=== PATIENT | male | born 1965 | race Caucasian/White ===

== ENCOUNTER 2018-05-10 00:09 | Outpatient (CLI) | payer BC, SELFPAY ==
--- NOTE | 2018-05-10 07:27 | DI.RAD_ITS ---
SYMPTOM/DIAGNOSIS: SHORTNESS OF BREATH, R06.02 CHEST X-RAY: PA and lateral. No priors. The heart is normal in size. The lungs are clear. The mediastinal structures and pleura appear intact. CONCLUSION: Normal chest.
[2018-05-10 09:53] LABS: HCT 42.5 % (40.0-50.0); HGB 13.9 g/dL (13.5-17.5); Mean Corp. HGB Concentration 32.7 g/dL (32.0-36.0); Mean Corpuscular Hemoglobin 27.4 pg (27.0-33.0); Mean Corpuscular Volume 83.8 fL (80-95); Mean Platelet Volume 9.9 fL (8.0-11.0); Platelet Count 349 x1000/uL (130-400); RBC 5.07 m/cumm (4.50-6.00); RBC Distribution Width 14.1 % (11.8-14.1); White Blood Cell Count 6.62 k/cumm (4.4-10.8)
[2018-05-10 10:53] LABS: ALT 46 U/L (12-78); AST 25 U/L (15-37); Alkaline Phosphatase 70 U/L (46-116); Anion Gap 7.7 mmol/L (3-11); BUN 16 mg/dL (7-18); Bilirubin, Total 0.4 mg/dL (0.2-1.0); CO2 29.3 mmol/L (21.0-32.0); CREATININE 0.83 mg/dL (0.70-1.30); Calcium 9.2 mg/dL (8.5-10.1); Chloride 102 mmol/L (98-107); Cholesterol 245 mg/dL (50-200); Glucose 104 mg/dL (70-100); HDL Cholesterol 48 mg/dL (40-60); LDL CHOLESTEROL 174 mg/dL (<100); Potassium 4.8 mmol/L (3.5-5.1); Sodium 139 mmol/L (136-145); Total Protein 7.2 g/dL (6.4-8.2); Triglyceride 91 mg/dL (30-150)
== END 2018-05-10 00:29 ==
PROVIDERS: PCP Nurse Practitioner; Visit Provider Nurse Practitioner
DX: R06.02 Shortness of breath (principal); E66.9 Obesity, unspecified
CPT/HCPCS: 36415; 80053; 80061; 83721; 85027; 71046

== ENCOUNTER 2018-05-17 01:49 | Outpatient (CLI) | payer BC, SELFPAY ==
--- NOTE | 2018-05-17 07:30 | MERGE_ITS ---
*[facility]* *[facility]* [address] [place] [address] Date of study: 05/17/2018 Transthoracic Echocardiography M-mode, complete 2D, complete spectral Doppler, and color Doppler *STUDY CONCLUSIONS* Summary: 1. Left ventricle: The cavity size was normal. The estimated ejection fraction was 65%. Diastolic parameters were normal. There was no evidence of elevated ventricular filling pressure by Doppler parameters. 2. Mitral valve: There was mild regurgitation. 3. Right ventricle: The cavity size was normal. Wall thickness was normal. Systolic function was normal. 4. Atrial septum: No defect or patent foramen ovale was identified. 5. Pulmonary arteries: Pulmonary systolic pressure was in the range of 25mm Hg to 35mm Hg. 6. Inferior vena cava: The vessel was patent and normal in size. The respirophasic diameter changes were in the normal range (greater than or equal to 50%), consistent with normal central venous pressure. *PATIENT PRESENTATION* Height: 177.8cm ((70in) ) S/D Pressure: 122 / 71 Weight: 108kg ((237.5lb) ) BSA: 2.35m^2 Test start time: 07:40 AM. Test stop time: 08:40 AM. PERFORMING [facility] [employer]ATER RT Francisco Trimble)(CT), [facility] ORDERING Marisol South Joyce A *PROCEDURE DATA* Procedure information: The patient was identified by two identifiers. This study was interpreted by [facility]. Pertinent images and digital data are archived for permanent storage and are available for subsequent review. No prior study was available for comparison. Study status: Routine. Transthoracic echocardiography. M-mode, complete 2D, complete spectral Doppler, and color Doppler. A Transthoracic Echocardiogram was performed. Scanning was performed from the parasternal, apical, subcostal, and suprasternal notch acoustic windows. Images were obtained using an [id number] cardiac ultrasound machine. Image quality was good. Study completion: The patient tolerated the procedure well. History: PMH: Shortness of breath. *CARDIAC ANATOMY* Left ventricle: The cavity size was normal. The estimated ejection fraction was 65%. The tissue Doppler parameters were normal. Diastolic parameters were normal. There was no evidence of elevated ventricular filling pressure by Doppler parameters. Aortic valve: Trileaflet. Doppler: There was no stenosis. There was no regurgitation. VTI ratio of LVOT to aortic valve: 0.76. Valve area (VTI): 2.7cm^2. Indexed valve area (VTI): 1.2cm^2/m^2. Peak velocity ratio of LVOT to aortic valve: 0.81. Valve area (Vmax): 2.9cm^2. Indexed valve area (Vmax): 1.2cm^2/m^2. Mean velocity ratio of LVOT to aortic valve: 0.83. Valve area (Vmean): 3cm^2. Indexed valve area (Vmean): 1.3cm^2/m^2. Mean gradient (S): 4.2mm Hg. Peak gradient (S): 7.5mm Hg. Aorta: Aortic root: The aortic root was normal in size. Ascending aorta: The ascending aorta was normal in size. Mitral valve: Doppler: There was no evidence for stenosis. There was mild regurgitation. Valve area by pressure half-time: 3.6cm^2. Indexed valve area by pressure half-time: 1.5cm^2/m^2. Peak gradient (D): 3.3mm Hg. Left atrium: The atrium was normal in size. Atrial septum: No defect or patent foramen ovale was identified. Right ventricle: The cavity size was normal. Wall thickness was normal. Systolic function was normal. Pulmonic valve: Doppler: There was no evidence for stenosis. There was trivial regurgitation. Tricuspid valve: Doppler: There was mild regurgitation. Pulmonary artery: Poorly visualized. Pulmonary systolic pressure was in the range of 25mm Hg to 35mm Hg. Right atrium: The atrium was normal in size. Pericardium: There was no pericardial effusion. Systemic veins: Inferior vena cava: Well visualized. The vessel was patent and normal in size. The respirophasic diameter changes were in the normal range (greater than or equal to 50%), consistent with normal central venous pressure. Baseline ECG: Normal sinus rhythm. Measurements Left ventricle Value Reference LV ID, ED, PLAX 4.5 cm 3.5 - 6.0 LV ID, ES, PLAX 3.1 cm 2.1 - 4.0 LV PW thickness, ED, PLAX 0.9 cm LV end-diastolic volume, 1-p A2C 102 ml LV ejection fraction, 1-p A2C 64 % LV end-diastolic volume, 1-p A4C 83 ml LV ejection fraction, 1-p A4C 62 % LV e', lateral 0.136 m/sec LV E/e', lateral 7 LV e', medial 0.084 m/sec LV E/e', medial 11 LV e', average 0.11 m/sec LV E/e', average 8 Ventricular septum Value Reference IVS thickness, ED, PLAX 1.1 cm LVOT Value Reference LVOT ID, A-P 2.1 cm LVOT area 3.6 cm^2 LVOT peak velocity, S 1.11 m/sec LVOT mean velocity, S 0.82 m/sec LVOT VTI, S 22.1 cm LVOT peak gradient, S 4.9 mm Hg LVOT mean gradient, S 2.9 mm Hg Stroke volume (SV), LVOT DP 79 ml Stroke index (SV/bsa), LVOT DP 34 ml/m^2 Aortic valve Value Reference Aortic valve peak velocity, S 1.4 m/sec Aortic valve mean velocity, S 0.98 m/sec Aortic valve VTI, S 29.0 cm Aortic mean gradient, S 4.2 mm Hg Aortic peak gradient, S 7.5 mm Hg VTI ratio, LVOT/AV 0.76 Aortic valve area, VTI 2.7 cm^2 Velocity ratio, peak, LVOT/AV 0.81 Aortic valve area, peak velocity 2.9 cm^2 Velocity ratio, mean, LVOT/AV 0.83 Aortic valve area, mean velocity 3 cm^2 Aortic valve area/bsa, mean velocity 1.3 cm^2/m^2 Aorta Value Reference Aortic root ID, ED 3.5 cm Ascending aorta ID, A-P, S 2.7 cm Left atrium Value Reference LA ID, A-P, ES 3.7 cm LA ID/bsa, A-P 1.6 cm/m^2 <=2.2 LA area, ES, A4C 18.5 cm^2 8.8 - 23.4 LA area, ES, A2C 20 cm^2 LA volume/bsa, ES, 1-p A4C 26 ml/m^2 LA volume, ES, 2-p 57 ml LA volume/bsa, ES, 2-p 24 ml/m^2 LA/aortic root ratio 1.06 Mitral valve Value Reference Mitral E-wave peak velocity 0.91 m/sec Mitral A-wave peak velocity 0.59 m/sec Mitral deceleration time 211 ms 150 - 230 Mitral pressure half-time 61 ms Mitral peak gradient, D 3.3 mm Hg Mitral E/A ratio, peak 1.55 Mitral valve area, PHT, DP 3.6 cm^2 Pulmonary veins Value Reference Pulmonary vein peak velocity, S 0.6 m/sec Pulmonary vein peak velocity, D 0.34 m/sec Pulmonary vein velocity ratio, peak, 1.78 S/D Pulmonary vein A-wave reversal peak 0.34 m/sec velocity Pulmonary vein A-wave reversal 178 ms duration Tricuspid valve Value Reference Tricuspid regurg peak velocity 2.6 m/sec Tricuspid peak RV-RA gradient 27.5 mm Hg Right atrium Value Reference RA area, ES, A4C 11.2 cm^2 8.3 - 19.5 Legend: (L) and (H) elvin values outside specified reference range. I have personally reviewed the images and have reviewed and edited the reported findings. Electronically signed by Maximo Allen MD 05/17/2018 19:11
== END 2018-05-17 02:09 ==
PROVIDERS: PCP Nurse Practitioner; Visit Provider Nurse Practitioner
DX: R06.02 Shortness of breath (principal); I34.0 Nonrheumatic mitral (valve) insufficiency
CPT/HCPCS: 93306

== ENCOUNTER 2018-05-18 00:23 | Outpatient (CLI) | payer BC, SELFPAY ==
--- NOTE | 2018-05-18 11:30 | ETT_ITS ---
*[facility]* *[facility]* [address] [place] [address] Stress Electrocardiography Jeff protocol Date of study: 05/18/2018 *PATIENT PRESENTATION* Height: 177.8cm (70in) Blood Pressure: Weight: 107.7kg (237lb) BSA: 2.34m^2 Referring physician: Marisol South Ordering physician: Marisol South Impressions: Normal study after maximal exercise. Summary: 1. Stress ECG conclusions: The stress ECG is negative. 2. Stress: The target heart rate was achieved. There is a normal resting blood pressure with an appropriate response to stress. The patient experienced no chest pain during stress. Exercise capacity is average for age. Indication: R06.02. History: REASON FOR VISIT: PT REPORTS PROGRESSIVE SHORTNESS OF BREATH ON EXERTION FOR PAST 6 MONTHS TO 1 YEAR. PT RELATES THIS TO LACK OF EXERCISE AND WEIGHT GAIN. Risk factors: Obesity. Dyslipidemia. Cholesterol: 245mg/dl. HDL: 48mg/dl. LDL: 174mg/dl. Triglycerides: 91mg/dl. ALLERGIES: NO KNOWN DRUG ALLERGIES. MEDICATIONS:IPRATROPIUM BROMIDE 0.03% NASAL SPRAY BID. IBUPREFEN 200-400 MG PRN. ACETAMINOPHEN 325-650 MG PRN. EMERGEN-C 1000 MG PRN. Protocol: Jeff protocol. Baseline ECG: SINUS RHYTHM. HR 78BPM. Stress protocol: + +---+ + !Stage !HR !BP (mmHg) ! + +---+ + !Baseline supine !78 !132/78 (96) ! + +---+ + !Baseline standing !86 !128/76 (93) ! + +---+ + !Stage I; 1.7mph, 10degrees; 3 min !124!162/88 (113)! + +---+ + !Stage II; 2.5mph, 12degrees; 3 min !140!162/82 (109)! + +---+ + !Stage III; 3.4mph, 14degrees; 3 min!164!186/90 (122)! + +---+ + !Immediate post stress !154!170/78 (109)! + +---+ + !Recovery; 3 min !113!178/78 (111)! + +---+ + !Recovery; 6 min !100!164/76 (105)! + +---+ + !Recovery; 9 min !97 !158/80 (106)! + +---+ + * Stress results: Maximal heart rate during stress was 171bpm (101% of maximal predicted heart rate). The maximal predicted heart rate was 169bpm. The target heart rate was achieved. There is a normal resting blood pressure with an appropriate response to stress. The rate-pressure product for the peak heart rate and blood pressure was 49181wh Hg/min. The patient experienced no chest pain during stress. Exercise capacity is average for age. Stress ECG: TREADMILL PORTION OF TEST ENDED IN 9 MINUTES & 10 SECONDS DUE TO SHORTNESS OF BREATH AND FATIGUE. NORMAL HEART RATE BLOOD PRESURE RESPONSE TO EXERCISE. MAX HR = 171. % OF TARGET = 101. APPROXIMATE METS ACHIEVED = 10.49 NO ECTOPY. NO ANGINA. NO SIGNIFICANT ST SEGMENT CHANGES. AVERAGE FUNCTIONAL CAPACITY FOR EXERCISE. The stress ECG is negative. Study data: Dk Allan MD supervised and was readily available during the procedure. This study was interpreted by [facility]. Study status: Routine. Consent: The risks, benefits, and alternatives to the procedure were explained to the patient and informed consent was obtained. Procedure: Initial setup. A baseline ECG was recorded. Surface ECG leads and manual cuff blood pressure measurements were monitored. Heart sounds: Normal. Lung sounds: Normal. Treadmill exercise testing was performed using the Jeff protocol. Study completion: The patient tolerated the procedure well and was discharged from the lab. Discharge: The patient left the laboratory in stable condition. Birthdate: Patient birthdate: 1965. Sex: Gender: male. Study date: Study date: 05/18/2018. Study time: 11:30 AM. Signature Documentation: The Stress ECG portion of this study was interpreted by Dk Allan MD. Electronically signed by Dk Allan 05/18/2018 17:53
== END 2018-05-18 00:43 ==
PROVIDERS: PCP Nurse Practitioner; Visit Provider Nurse Practitioner
DX: R00.2 Palpitations (principal); E78.5 Hyperlipidemia, unspecified; E66.9 Obesity, unspecified
CPT/HCPCS: 93017

== ENCOUNTER 2023-11-28 03:09 | Outpatient (CLI) | payer BC, SELFPAY ==
[2023-11-28 07:43] LABS: HGB 13.8 g/dL (13.5-17.5)
[2023-11-28 08:23] LABS: ALT 50 U/L (16-63); AST 22 U/L (15-37); Albumin 3.9 g/dL (3.4-5.0); Alkaline Phosphatase 59 U/L (46-116); Anion Gap 8.5 mmol/L (3-11); BUN 14 mg/dL (7-18); CO2 27.5 mmol/L (21.0-32.0); CREATININE 0.8 mg/dL (0.70-1.30); Chloride 105 mmol/L (98-107); Estimated GFR 103.87 (mL/min/1.73m2); Glucose 205 mg/dL (74-106); Potassium 3.7 mmol/L (3.5-5.1); Sodium 141 mmol/L (136-145); Vitamin D 25 Total 13.3 ng/mL (30-100)
[2023-12-04 15:20] LABS: Apolipoprotein B, Serum 128 mg/dL; Beta VLDL Cholesterol Not Detected mg/dL (<15); Beta VLDL Triglycerides Not Detected mg/dL (<15); Cholesterol, Total, CDC 229 mg/dL; Chylomicron Cholesterol Not Detected; Chylomicron Triglycerides Not Detected; HDL Cholesterol, CDC 37 mg/dL (>=40); LDL Cholesterol 161 mg/dL; LDL Triglycerides 40 mg/dL (<=50); Lp(a) Cholesterol <5 mg/dL (<5); LpX Not detected; Triglycerides, CDC 136 mg/dL; VLDL Cholesterol 31 mg/dL (<30); VLDL Triglycerides 76 mg/dL (<120)
== END 2023-11-28 03:10 | disposition home or self-care (01) ==
LOC: LBO 03:09
PROVIDERS: PCP Student in an Organized Health Care Education/Training Program; Referring Provider Student in an Organized Health Care Education/Training Program; Visit Provider Student in an Organized Health Care Education/Training Program
DX: R63.5 Abnormal weight gain (principal); G47.33 Obstructive sleep apnea (adult) (pediatric); Z00.00 Encounter for general adult medical examination without abnormal findings; E78.5 Hyperlipidemia, unspecified; R73.09 Other abnormal glucose
CPT/HCPCS: 36415; 80053; 80061; 82306; 82172; 82664; 83036; 85018

== ENCOUNTER 2024-02-05 09:57 | Day surgery (SDC) | payer BC, SELFPAY ==
--- NOTE | 2024-02-04 13:57 | W.PM.DSUDISC ---
Date of service: 02/05/24 Time of Service: 12:29 Discharge Plan Disposition Patient Disposition: Home Condition: Good Discharge Details Reason For Visit: screening colonoscopy Attending Provider: Britton Kerr Primary Care Provider: Lianet Harris Home Meds and New Rx's Prescriptions: Continued (DME) pen needle, diabetic [Comfort EZ Pen [place]] 32 gauge x 5/32 needle See Rx Instructions .Route Qty: 100 12RF Rx Instructions: Use daily with insulin injection (DME) FreeStyle Eloisa 3 Sensor Device See Rx Instructions .Route Qty: 1 12RF Rx Instructions: Apply sensor to rear tricep (DME) Dexcom G7 Sensor Device See Rx Instructions .Route Qty: 1 12RF Rx Instructions: Apply to rear tricep as directed multivitamin [Daily Multi-Vitamin] Tablet 1 tab PO DAILY rosuvastatin 5 mg tablet 5 mg PO DAILY MDD 5 mg 90 Days Qty: 90 4RF Patient Comments: has not started yet Rx Instructions: Take one 5 mg tablet by mouth once daily Mounjaro 7.5 mg/0.5 mL pen injector 7.5 mg subcut QWEEK MDD 7.5 28 Days Qty: 2 12RF Rx Instructions: Inject 7.5 mg subcutaneously once weekly as directed insulin glargine [Lantus Solostar U-100 Insulin] 100 unit/mL (3 mL) insulin pen 9 unit subcut QAM Rx Instructions: Starting dose, with adjustment per AM blood glucose levels per CDE/Dr. Guzman or PCP Discontinued polyethylene glycol 3350 17 gram/dose powder 238 g PO ONCE Qty: 238 0RF Rx Instructions: take per colonoscopy instructions bisacodyl [Dulcolax (bisacodyl)] 5 mg tablet,delayed release (DR/EC) 5 mg PO ONCE Qty: 4 0RF Rx Instructions: take per colonoscopy instructions Discharge Instructions Instructions: Diverticulosis Additional Instructions: Jose Luis, it was good seeing you today, and I hope the procedure was comfortable for you. Your prep was great and I could see everything fine. I did see some diverticulosis. Diverticula are weak spots in the muscular part of the colon wall. They typically accumulate as we get older. On occasion, they can get infected or inflamed, and during those episodes we called diverticulitis. This is typically experienced as sharp pain usually on the left lower part of the abdomen. It is sometimes treated with antibiotics. Hopefully years never bother you. Otherwise, the colonoscopy was negative. I saw no signs of any tumors or polyps today. Because of the types of polyps that you had removed previously, I do recommend another 5-year interval for your next colonoscopy. If that 1 is negative, then you could give consideration to them every 10 years. If you have any questions at all, please do not hesitate to ask, otherwise I look forward to seeing you in 5 years. 1. If tolerated, consume a soft, low fiber diet for 1-2 days. 2[address] Do not drive, drink alcohol, operate machinery, make critical decisions, or do activities that require coordination or balance for 24 hours. 3. Because air was put into your colon during the procedure, expelling air from your rectum (passing gas or farting) is normal. 4. You may not have a bowel movement for 1-3 days because of the colonoscopy prep. This is normal. 5. Go directly to the emergency room if you notice any of the following: Develop chills (warm to touch), or if you have a thermometer and your temperature is above 101 Difficulty breathing or difficultly swallowing Persistent vomiting Severe abdominal pain, other than gas cramps Severe chest pain Black, tarry stools Any bleeding ? exceeding one tablespoon 6. Call your physician if the site where your intravenous was started becomes red, swollen, painful, and warm to touch. 7. Your physician has reviewed your pre-procedure medications. Please continue to take those medications as previously ordered. You will be given specific information/education regarding any changes to your medications before leaving. Stand Alone Forms: Anesthesia Discharge Inst., Geeta Torres (DSU) Activity:: Activity as Tolerated Diet:: As Tolerated Discharge Orders Discharge Orders: Discharge Order (Routine); Ordered 02/04/24 Ordered By: Britton Kerr DS: Diagnosis Discharge Diagnosis (1) Encounter for screening colonoscopy: Status: Acute Asessment and Plan: Negative screening colonoscopy; based on history of adenomatous polyps recommend another 5-year interval for the next colonoscopy
--- NOTE | 2024-02-04 13:59 | W.COLOREPORT ---
Date of service: 02/05/24 Time of Service: 12:30 Colonoscopy Report Date of procedure: 02/05/24 Pre-op diagnosis general: screening colonoscopy Post-op diagnosis procedure note: other (Diverticulosis) Procedure: colonoscopy Surgeon: Britton Kerr Anesthesia Type: General:No Airway Estimated blood loss (mL): 0 Pathology: none sent Complications: None Disposition: same day Indications: Jose Luis is a 58 year old man who needs a screening colonoscopy Prep: Miralax/Dulcolax Procedure Start Time: 12:03 Procedure End Time: 12:19 Retraction Time: 9 Findings: Sigmoid diverticulosis Procedure Description: After the induction of anesthesia, and with the patient in left lateral decubitus position, I began by performing an external anorectal exam.? Perineum and skin were normal, as was the anal verge.? There was no evidence of external hemorrhoids.? Next, I performed a digital rectal exam.? I did not appreciate any abnormal findings.? Next, I advanced a colonoscope into the rectal vault.? I performed retroflexion.? This appeared normal.? Using insufflation, I then advanced the colonoscope beyond the rectal folds and into the sigmoid colon before advancing towards the cecum.? There is just a little bit of sigmoid diverticulosis.? The scope was noted to be in the cecum by identification of the ileocecal valve and appendiceal orifice.? I then began withdrawing the colonoscope using repeated irrigation as necessary for full evaluation of the colonic mucosa. ?Once the scope was withdrawn to the level of the rectum, great care was taken to examine portions of the rectal folds.? Finally, the scope was withdrawn and the patient was brought to the same-day surgery recovery unit as the anesthetic wore off. ?The findings and instructions were shared with the patient prior to discharge. Jewell Bowel Prep Jewell Bowel Prep Right Colon: 3 Left Colon: 3 Transverse Colon: 3 Total Score: 9
[2024-02-05 10:21] VITALS: BP 120/86; PULSE 75; RESP 16; TEMP 36.6; O2SAT 97
[2024-02-05] MEDS: Lactated Ringers 1,000 ML 80 ML IV (10:44)
--- NOTE | 2024-02-05 11:39 | ANES.PREOP_ITS ---
General Info Date of Service Date Performed: 02/05/24 Height: 5 ft 10 in Weight: 98.9 kg Body Mass Index (BMI): 31.2 Surgical Procedure: Operation Date: 02/05/24 11:35 Proposed Procedure Side Surgeon larisa Kerr MD Meds Allergies and Home Medications Allergies Allergy/AdvReac Type Severity Reaction Status Date / Time No Known Allergies Allergy Verified 02/05/24 10:27 Home Medication ?Medication ?Instructions ?Recorded blood-glucose sensor (Dexcom G7 #1 ea 12/01/23 Sensor device) blood-glucose sensor (FreeStyle #1 ea 12/01/23 Eloisa 3 Sensor device) pen needle, diabetic 32 gauge x #100 ea 12/01/23 (Comfort EZ Pen Elton) rosuvastatin 5 mg tablet 5 mg PO DAILY 90 days #90 tabs 12/29/23 tirzepatide 7.5 mg/0.5 mL 7.5 mg (0.5 mL) subcut QWEEK 28 01/12/24 subcutaneous pen injector days #2 mL (Mounjaro) multivitamin (Daily Multi-Vitamin 1 tab PO DAILY 01/23/24 tablet) insulin glargine 100 unit/mL (3 9 unit subcut QAM DM, with goal 02/01/24 mL) subcutaneous pen (Lantus A1C < 7.5 Solostar U-100 Insulin) Current Visit Medications: Current Medications Generic Name Dose Route Start Last Admin Trade Name Freq PRN Reason Stop Dose Admin Ringer's Solution 1,000 mls @ 80 mls/hr 02/05/24 06:00 02/05/24 10:44 IV 03/03/24 23:59 80 mls/hr INFUSION VITALIY Administration IV Miscellaneous Supplies 1 each 02/05/24 06:00 Iv Access IV 03/03/24 23:59 DIRECTED VITALIY Ondansetron HCl 4 mg 02/04/24 14:00 Ondansetron 4 Mg/2 Ml Vial IVP 03/05/24 13:59 Q4H PRN PRN Nausea / Vomiting Sodium Chloride 0 ml 02/05/24 06:00 Normal Saline Flush 10 Ml Syr IV 03/03/24 23:59 PRN PRN Sodium Chloride 0 ml 02/05/24 06:00 Normal Saline 10 Ml Vial IJ 03/03/24 23:59 DIRECTED PRN Sterile Water 0 ml 02/05/24 06:00 Water,Injection,Sterile 10 Ml Vial IJ 03/03/24 23:59 DIRECTED PRN PFSH Active Problems Active Problems: Problem Status Onset Code Encounter for screening colonoscopy Acute Z12.11 Staci type 2a hyperlipoproteinemia Acute E78.00 Diabetes mellitus type 2, uncomplicated Acute E11.9 Hx of low back pain Acute Z87.39 Physical deconditioning Acute R53.81 Weight gain Acute R63.5 Obstructive sleep apnea syndrome, severe Acute 06/19/18 G47.33 BPH w urinary obs/LUTS Acute N40.1, N13.8 Tubular adenoma of colon Acute 08/21/17 D12.6 Medical History Medical History SUSI (obstructive sleep apnea) Hx of type 2 diabetes mellitus Adenomatous polyp of colon with dysplacia Surgical History Surgical History H/O right wrist surgery 1973 in [place] Colonoscopy - [facility] (08/21/17) Tobacco Smoking/Tobacco Use Status: Never Passive smoking exposure: No Second hand exposure: No Alcohol Alcohol Intake: never Substance Use Substance use: Never Substance use type: does not use Vital Signs and Lab Results Vital Signs Most Recent Vital Signs in EMR: Most Recent Vital Signs Temp Pulse Resp BP Pulse Ox 36.6 C 75 16 120/86 97 02/05/24 10:21 02/05/24 10:21 02/05/24 10:21 02/05/24 10:21 02/05/24 10:21 Lab Results Blood Type / Crossmatch: No Data to Display Complete Blood Count: No Data to Display Complete Metabolic Panel: No Data to Display Liver Function Panel: No Data to Display Coagulation Panel: No Data to Display Cardiac Panel: No Data to Display Arterial Blood Gas: No Data to Display Venous Blood Gas: No Data to Display Pancreas Panel: No Data to Display Thyroid Panel: No Data to Display Infectious Disease: No Data to Display Blood Cultures: No Data to Display Toxicology Panel: No Data to Display Imaging and Studies Imaging and Studies Study information below may be from another EMR and interpreted by another provider. Please see original notes in EMR for more complete details. Stress Test Summary: STRESS TEST PATIENT NAME: TEMITOPE GRAYSON UNIT #: [id number] ADMITTING PROVIDER: RUSH ALLAN MD PRIMARY CARE PROVIDER: Marisol South NP DATE OF SERVICE: 05/18/18 : 1965 *[facility]* *[facility]* [address] [place] [address] Stress Electrocardiography Jeff protocol Date of study: 05/18/2018 *PATIENT PRESENTATION* Height: 177.8cm (70in) Blood Pressure: Weight: 107.7kg (237lb) BSA: 2.34m^2 Referring physician: Marisol South Ordering physician: Marisol South Impressions: Normal study after maximal exercise. Summary: 1. Stress ECG conclusions: The stress ECG is negative. 2. Stress: The target heart rate was achieved. There is a normal resting blood pressure with an appropriate response to stress. The patient experienced no chest pain during stress. Exercise capacity is average for age. Indication: R06.02. History: REASON FOR VISIT: PT REPORTS PROGRESSIVE SHORTNESS OF BREATH ON EXERTION FOR PAST 6 MONTHS TO 1 YEAR. PT RELATES THIS TO LACK OF EXERCISE AND WEIGHT GAIN. Risk factors: Obesity. Dyslipidemia. Cholesterol: 245mg/dl. HDL: 48mg/dl. LDL: 174mg/dl. Triglycerides: 91mg/dl. ALLERGIES: NO KNOWN DRUG ALLERGIES. MEDICATIONS:IPRATROPIUM BROMIDE 0.03% NASAL SPRAY BID. IBUPREFEN 200-400 MG PRN. ACETAMINOPHEN 325-650 MG PRN. EMERGEN-C 1000 MG PRN. Protocol: Jeff protocol. Baseline ECG: SINUS RHYTHM. HR 78BPM. Stress protocol: + +---+ + !Stage !HR !BP (mmHg) ! + +---+ + !Baseline supine !78 !132/78 (96) ! + +---+ + !Baseline standing !86 !128/76 (93) ! + +---+ + !Stage I; 1.7mph, 10degrees; 3 min !124!162/88 (113)! + +---+ + !Stage II; 2.5mph, 12degrees; 3 min !140!162/82 (109)! + +---+ + !Stage III; 3.4mph, 14degrees; 3 min!164!186/90 (122)! + +---+ + !Immediate post stress !154!170/78 (109)! + +---+ + !Recovery; 3 min !113!178/78 (111)! + +---+ + !Recovery; 6 min !100!164/76 (105)! + +---+ + !Recovery; 9 min !97 !158/80 (106)! + +---+ + * Stress results: Maximal heart rate during stress was 171bpm (101% of maximal predicted heart rate). The maximal predicted heart rate was 169bpm. The target heart rate was achieved. There is a normal resting blood pressure with an appropriate response to stress. The rate-pressure product for the peak heart rate and blood pressure was 46396wr Hg/min. The patient experienced no chest pain during stress. Exercise capacity is average for age. Stress ECG: TREADMILL PORTION OF TEST ENDED IN 9 MINUTES & 10 SECONDS DUE TO SHORTNESS OF BREATH AND FATIGUE. NORMAL HEART RATE BLOOD PRESURE RESPONSE TO EXERCISE. MAX HR = 171. % OF TARGET = 101. APPROXIMATE METS ACHIEVED = 10.49 NO ECTOPY. NO ANGINA. NO SIGNIFICANT ST SEGMENT CHANGES. AVERAGE FUNCTIONAL CAPACITY FOR EXERCISE. The stress ECG is negative. Study data: Rush Allan MD supervised and was readily available during the procedure. This study was interpreted by [facility]. Study status: Routine. Consent: The risks, benefits, and alternatives to the procedure were explained to the patient and informed consent was obtained. Procedure: Initial setup. A baseline ECG was recorded. Surface ECG leads and manual cuff blood pressure measurements were monitored. Heart sounds: Normal. Lung sounds: Normal. Treadmill exercise testing was performed using the Jeff protocol. Study completion: The patient tolerated the procedure well and was discharged from the lab. Discharge: The patient left the laboratory in stable condition. Birthdate: Patient birthdate: 1965. Sex: Gender: male. Study date: Study date: 05/18/2018. Study time: 11:30 AM. Signature Documentation: The Stress ECG portion of this study was interpreted by Rush Allan MD. Electronically signed by Rush Allan 05/18/2018 17:53 Dictated by: RUSH ALLAN MD Dictated:: 05/18/18 1133 05/18/18 1753 Transcribed Date: Transcribed Time: By: DI.MERGE This is privileged, confidential information, intended only for the provider named. Any use or distribution by any person other than this provider is strictly prohibited. If you receive this report in error, please notify us immediately at [phone] and return the original report to us at the address above. Thank you. Echocardiogram Summary: Patient Name: TEMITOPE GRAYSON Unit #: [id number] Loc: DI Ordering Provider: Marisol South NP Status: REG CLI Primary Care Provider: Marisol South NP Date of Exam: 05/17/18 Sex: M : 1965 Age: 53 Exam(s) a US:US echocardiogram *[facility]* *[facility]* [address] [place] [address] Date of study: 05/17/2018 Transthoracic Echocardiography M-mode, complete 2D, complete spectral Doppler, and color Doppler *STUDY CONCLUSIONS* Summary: 1. Left ventricle: The cavity size was normal. The estimated ejection fraction was 65%. Diastolic parameters were normal. There was no evidence of elevated ventricular filling pressure by Doppler parameters. 2. Mitral valve: There was mild regurgitation. 3. Right ventricle: The cavity size was normal. Wall thickness was normal. Systolic function was normal. 4. Atrial septum: No defect or patent foramen ovale was identified. 5. Pulmonary arteries: Pulmonary systolic pressure was in the range of 25mm Hg to 35mm Hg. 6. Inferior vena cava: The vessel was patent and normal in size. The respirophasic diameter changes were in the normal range (greater than or equal to 50%), consistent with normal central venous pressure. *PATIENT PRESENTATION* Height: 177.8cm ((70in) ) S/D Pressure: 122 / 71 Weight: 108kg ((237.5lb) ) BSA: 2.35m^2 Test start time: 07:40 AM. Test stop time: 08:40 AM. PERFORMING [facility] [employer]ATION SUPERVISOR RT Atilio (Adam)(CT), [facility] ORDERING Marisol South REFERRING Marisol South *PROCEDURE DATA* Procedure information: The patient was identified by two identifiers. This study was interpreted by [facility]. Pertinent images and digital data are archived for permanent storage and are available for subsequent review. No prior study was available for comparison. Study status: Routine. Transthoracic echocardiography. M-mode, complete 2D, complete spectral Doppler, and color Doppler. A Transthoracic Echocardiogram was performed. Scanning was performed from the parasternal, apical, subcostal, and suprasternal notch acoustic windows. Images were obtained using an [id number] cardiac ultrasound machine. Image quality was good. Study completion: The patient tolerated the procedure well. History: PMH: Shortness of breath. *CARDIAC ANATOMY* Left ventricle: The cavity size was normal. The estimated ejection fraction was 65%. The tissue Doppler parameters were normal. Diastolic parameters were normal. There was no evidence of elevated ventricular filling pressure by Doppler parameters. Aortic valve: Trileaflet. Doppler: There was no stenosis. There was no regurgitation. VTI ratio of LVOT to aortic valve: 0.76. Valve area (VTI): 2.7cm^2. Indexed valve area (VTI): 1.2cm^2/m^2. Peak velocity ratio of LVOT to aortic valve: 0.81. Valve area (Vmax): 2.9cm^2. Indexed valve area (Vmax): 1.2cm^2/m^2. Mean velocity ratio of LVOT to aortic valve: 0.83. Valve area (Vmean): 3cm^2. Indexed valve area (Vmean): 1.3cm^2/m^2. Mean gradient (S): 4.2mm Hg. Peak gradient (S): 7.5mm Hg. Aorta: Aortic root: The aortic root was normal in size. Ascending aorta: The ascending aorta was normal in size. Mitral valve: Doppler: There was no evidence for stenosis. There was mild regurgitation. Valve area by pressure half-time: 3.6cm^2. Indexed valve area by pressure half-time: 1.5cm^2/m^2. Peak gradient (D): 3.3mm Hg. Left atrium: The atrium was normal in size. Atrial septum: No defect or patent foramen ovale was identified. Right ventricle: The cavity size was normal. Wall thickness was normal. Systolic function was normal. Pulmonic valve: Doppler: There was no evidence for stenosis. There was trivial regurgitation. Tricuspid valve: Doppler: There was mild regurgitation. Pulmonary artery: Poorly visualized. Pulmonary systolic pressure was in the range of 25mm Hg to 35mm Hg. Right atrium: The atrium was normal in size. Pericardium: There was no pericardial effusion. Systemic veins: Inferior vena cava: Well visualized. The vessel was patent and normal in size. The respirophasic diameter changes were in the normal range (greater than or equal to 50%), consistent with normal central venous pressure. Baseline ECG: Normal sinus rhythm. Measurements Left ventricle Value Reference LV ID, ED, PLAX 4.5 cm 3.5 - 6.0 LV ID, ES, PLAX 3.1 cm 2.1 - 4.0 LV PW thickness, ED, PLAX 0.9 cm LV end-diastolic volume, 1-p A2C 102 ml LV ejection fraction, 1-p A2C 64 % LV end-diastolic volume, 1-p A4C 83 ml LV ejection fraction, 1-p A4C 62 % LV e', lateral 0.136 m/sec LV E/e', lateral 7 LV e', medial 0.084 m/sec LV E/e', medial 11 LV e', average 0.11 m/sec LV E/e', average 8 Ventricular septum Value Reference IVS thickness, ED, PLAX 1.1 cm LVOT Value Reference LVOT ID, A-P 2.1 cm LVOT area 3.6 cm^2 LVOT peak velocity, S 1.11 m/sec LVOT mean velocity, S 0.82 m/sec LVOT VTI, S 22.1 cm LVOT peak gradient, S 4.9 mm Hg LVOT mean gradient, S 2.9 mm Hg Stroke volume (SV), LVOT DP 79 ml Stroke index (SV/bsa), LVOT DP 34 ml/m^2 Aortic valve Value Reference Aortic valve peak velocity, S 1.4 m/sec Aortic valve mean velocity, S 0.98 m/sec Aortic valve VTI, S 29.0 cm Aortic mean gradient, S 4.2 mm Hg Aortic peak gradient, S 7.5 mm Hg VTI ratio, LVOT/AV 0.76 Aortic valve area, VTI 2.7 cm^2 Velocity ratio, peak, LVOT/AV 0.81 Aortic valve area, peak velocity 2.9 cm^2 Velocity ratio, mean, LVOT/AV 0.83 Aortic valve area, mean velocity 3 cm^2 Aortic valve area/bsa, mean velocity 1.3 cm^2/m^2 Aorta Value Reference Aortic root ID, ED 3.5 cm Ascending aorta ID, A-P, S 2.7 cm Left atrium Value Reference LA ID, A-P, ES 3.7 cm LA ID/bsa, A-P 1.6 cm/m^2 <=2.2 LA area, ES, A4C 18.5 cm^2 8.8 - Anesthesia Assessment and Plan Anesthesia History Personal History: No History of Anesthesia Complications Family History: No Family History of Anesthesia Complications Exercise Tolerance Exercise Tolerance: Metabolic Equivalents>4 Pertinent Negatives Pertinent Negatives: No Symptoms of GERD, No Major Pulmonary Symptoms or Complaints and No History of CVA/TIA Cardiac & Pulmonary Exam Cardiac Exam: Normal S1/S2 Heart Sounds Pulmonary Exam: Clear Bilateral Breath Sounds Implantable Cardiac Device Does patient have a Pacemaker or an ICD?: No Airway Exam Known Difficult Airway: No Mallampati Class: 2 Mouth Opening: Normal (> 3cm) Thyromental Distance: Greater than 3 cm Neck Range of Motion: Full ROM Neck Circumference: Normal Teeth Condition: Normal Dentition ASA Classification ASA Score: ASA 2 Emergency Case?: No NPO Status NPO Status: NPO Clears >2 hours, Solids >8 hours Anesthesia Plan Resuscitation Status: Full Code Anesthesia Technique: General Anesthesia Airway Planned: Natural Airway Monitors Used: Standard Monitors
[2024-02-05 11:47] VITALS: BMI 31.2
[2024-02-05 12:24] VITALS: BP 120/80; PULSE 75; RESP 16; TEMP 36.6; O2SAT 97
[2024-02-05 12:55] VITALS: BP 128/95; PULSE 68; RESP 16; TEMP 36.3; O2SAT 98
--- NOTE | 2024-02-05 14:05 | W.ANESPOSTOP ---
Postoperative Evaluation Date, Time and Location Date Performed: 02/05/24 Time Performed: 12:27 Patient Location: Day Surgery Unit Vital Signs Most Recent Imported Vital Signs: Most Recent Vital Signs Temp Pulse Resp BP Pulse Ox 36.3 C L 68 16 128/95 H 98 02/05/24 12:55 02/05/24 12:55 02/05/24 12:55 02/05/24 12:55 02/05/24 12:55 Prior VS were reviewed Pain Score Most Recent Pain Score: Most Recent Pain Score Pain Level 0 02/05/24 12:55 Assessment Mental Status: Awake (Alert & Oriented to Patient Baseline) Airway and Respiratory Function: Patent airway with normal (patient baseline) respiratory exam Cardiovascular Function: Hemodynamically Stable Hydration Status: Adequately Hydrated Nausea & Vomiting: No Nausea or Vomiting Pain: Pt. Denies Any Pain Peripheral Nerve Block: Patient did not receive a nerve block
== END 2024-02-05 13:20 | disposition home or self-care (01) ==
LOC: SUR 09:57
PROVIDERS: PCP Student in an Organized Health Care Education/Training Program; Visit Provider Surgery
PROC: 0DJD8ZZ Inspection of Lower Intestinal Tract, Via Natural or Artificial Opening Endoscopic (ICD-10-PCS; CPT 45378; principal; 2024-02-05 11:30)
DX: Z12.11 Encounter for screening for malignant neoplasm of colon (principal); K57.30 Diverticulosis of large intestine without perforation or abscess without bleeding
CPT/HCPCS: 45378; J2704

== ENCOUNTER 2024-03-08 13:38 | Outpatient (CLI) | payer BC, SELFPAY ==
--- NOTE | 2024-03-08 15:31 | DI.RAD_ITS ---
Exam(s) XR THORACIC SPINE COMPLETE EXAM: XR THORACIC SPINE COMPLETE CLINICAL HISTORY: M54.9,R26.0,M54.50,G89.29,Z87.39-evaluate vert spacing; r/o bony path. TECHNIQUE: 2D digital imaging was performed. Three views. COMPARISON: No exams were available for comparison FINDINGS: BONES: There is no fracture or destructive lesion. The vertebral bodies and posterior elements are un remarkable. ALIGNMENT: Within normal limits. DISKS: Small endplate osteophytes in the midthoracic levels. More prominent osteophytes inferiorly a t the thoracolumbar junction.. SOFT TISSUE: Visualized lungs are clear. Heart size is normal. IMPRESSION: Mild degenerative changes. DATA REPOSITORY: RADIATION DOSE DELIVERED:
--- NOTE | 2024-03-08 15:31 | DI.RAD_ITS ---
Exam(s) XR LUMBAR SPINE COMP W FLEX/EX EXAM: XR LUMBAR SPINE COMP W FLEX/EX CLINICAL HISTORY: R26.0,M54.50,G89.29,Z87.39 evaluate vert spacing; r/o bony path. TECHNIQUE: 2D digital imaging was performed. Seven views. Additional flexion and extension lateral views were performed upright. COMPARISON: No exams were available for comparison FINDINGS: BONES: No fracture or destructive lesion. Vertebral body heights are maintained. facet hypertroph y at L4-5 and L5-S1 . DISKS: Small endplate osteophytes. Intervertebral disc spaces are maintained. ALIGNMENT: Lumbar spinal alignment is within normal limits. No significant subluxation with flexion or extension. SOFT TISSUE: Normal. IMPRESSION: Mild degenerative changes. DATA REPOSITORY: RADIATION DOSE DELIVERED:
== END 2024-03-08 13:58 ==
LOC: DI 13:39
PROVIDERS: PCP Student in an Organized Health Care Education/Training Program; Visit Provider Student in an Organized Health Care Education/Training Program
DX: Z87.39 Personal history of other diseases of the musculoskeletal system and connective tissue; M54.9 Dorsalgia, unspecified; S29.012A Strain of muscle and tendon of back wall of thorax, initial encounter; X58.XXXA Exposure to other specified factors, initial encounter
CPT/HCPCS: 72114; 72072

== ENCOUNTER 2024-06-26 04:11 | Outpatient (CLI) | payer BC, SELFPAY ==
[2024-06-26 08:57] LABS: Vitamin D 25 Total 68.4 ng/mL (30-100)
[2024-07-01 17:14] LABS: Apolipoprotein B, Serum 85 mg/dL; Beta VLDL Cholesterol Not Detected mg/dL (<15); Beta VLDL Triglycerides Not Detected mg/dL (<15); Cholesterol, Total, CDC 170 mg/dL; Chylomicron Cholesterol Not Detected; Chylomicron Triglycerides Not Detected; HDL Cholesterol, CDC 44 mg/dL (>=40); Interpretation Normal; LDL Cholesterol 118 mg/dL; LDL Triglycerides 26 mg/dL (<=50); Lp(a) Cholesterol <5 mg/dL (<5); LpX Not detected; Triglycerides, CDC 81 mg/dL; VLDL Cholesterol 8 mg/dL (<30); VLDL Triglycerides 41 mg/dL (<120)
== END 2024-06-26 04:12 | disposition home or self-care (01) ==
LOC: LBO 04:11
PROVIDERS: PCP Student in an Organized Health Care Education/Training Program; Visit Provider Student in an Organized Health Care Education/Training Program
DX: R79.89 Other specified abnormal findings of blood chemistry (principal); E78.00 Pure hypercholesterolemia, unspecified
CPT/HCPCS: 36415; 80061; 82306; 82172; 82664

== ENCOUNTER 2024-07-01 16:26 | Emergency (ER) | payer BC, SELFPAY ==
[2024-07-01 16:33] VITALS: BP 120/76; PULSE 102; RESP 18; TEMP 37.5; O2SAT 96
[2024-07-01 17:05] LABS: Abs Immature Grans 0.02 10^3/uL (0.0-0.06); Absolute Basophil Count 0.01 10^3/uL (0.0-0.2); Absolute Lymphocyte Count 0.38 10^3/uL (1.2-3.4); Absolute Neutrophil Count 6.43 10^3/uL (1.2-6.7); Basophils % 0.1 %; HCT 44.1 % (40.0-50.0); HGB 14.7 g/dL (13.5-17.5); Immature Grans % 0.3 %; Lymphocytes % 5.3 %; MCH 28.1 pg (27.0-33.0); MCHC 33.3 % (32.0-36.0); MCV 84 fL (80-95); MPV 9.5 fL (8.0-11.0); Monocytes % 4.2 %; Neutrophils % 90.1 %; Platelet Count 281 10^3/uL (130-400); RBC 5.24 10^6/uL (4.36-5.78); RDW 13.5 % (11.8-14.1); RDW-SD 41.7 fL; WBC 7.14 10^3/uL (4.4-10.8)
[2024-07-01] MEDS: ACETAMINOPHEN 1,000 MG/100 ML BAG 400 MG IVPB (17:09)
[2024-07-01] MEDS: Famotidine 20 MG/2 ML VIAL IVP (17:09)
[2024-07-01] MEDS: Ondansetron 4 MG/2 ML VIAL IVP (17:10)
[2024-07-01 17:18] VITALS: BP 120/76; PULSE 102; RESP 18; TEMP 37.5; O2SAT 96
[2024-07-01 17:34] LABS: ALT 44 U/L (16-63); AST 20 U/L (15-37); Albumin 3.7 g/dL (3.4-5.0); Alkaline Phosphatase 65 U/L (46-116); Anion Gap 10.6 mmol/L (3-11); BUN 18 mg/dL (7-18); Bilirubin, Total 0.92 mg/dL (0.2-1.0); CO2 26.4 mmol/L (21.0-32.0); Calcium 8.8 mg/dL (8.5-10.1); Chloride 100 mmol/L (98-107); Estimated GFR 87.78 (mL/min/1.73m2); Glucose 153 mg/dL (74-106); Potassium 3.3 mmol/L (3.5-5.1); Sodium 137 mmol/L (136-145); Total Protein 7.4 g/dL (6.4-8.2)
[2024-07-01 18:00] VITALS: PULSE 90
[2024-07-01] MEDS: Ondansetron O.D.T. 4 MG TABEF, 3 TABS/BTL PO (18:25)
[2024-07-01 18:26] VITALS: PULSE 84
--- NOTE | 2024-07-01 19:19 | W.ED.GENAD ---
Discharge Plan Disposition Patient Disposition: Home Discharge Details Clinical Impression: Nausea vomiting and diarrhea Primary Care Provider: Lianet Harris ED Provider: Jenny Nesbitt Home Meds and New Rx's Prescriptions: New ondansetron 4 mg tablet,disintegrating 4 mg PO Q6H PRN (Reason: nausea and vomiting) Qty: 30 0RF No Action cholecalciferol (vitamin D3) 1,250 mcg (50,000 unit) capsule 1,250 mcg PO QWEEK Qty: 10 1RF (DME) pen needle, diabetic [Comfort EZ Pen [place]] 32 gauge x 5/32 needle See Rx Instructions .Route Qty: 100 12RF Rx Instructions: Use daily with insulin injection (DME) OneTouch Ultra Test Strip See Rx Instructions .Route Qty: 50 12RF Rx Instructions: Use to confirm BG readings from Eloisa multivitamin [Daily Multi-Vitamin] Tablet 1 tab PO DAILY rosuvastatin 5 mg tablet 5 mg PO DAILY MDD 5 mg 90 Days Qty: 90 4RF Patient Comments: has not started yet Rx Instructions: Take one 5 mg tablet by mouth once daily tirzepatide 12.5 mg/0.5 mL pen injector 12.5 mg subcut QWEEK MDD 12.5 mg 28 Days Qty: 2 12RF Rx Instructions: Inject 12.5 mg subcutaneously once weekly as directed tirzepatide 15 mg/0.5 mL pen injector 15 mg subcut QWEEK 28 Days Qty: 2 12RF Rx Instructions: Inject 15 mg subcutaneously once weekly as directed. (DME) Dexcom G7 Sensor Device See Rx Instructions .Route Qty: 1 12RF Rx Instructions: Apply to rear tricep as directed insulin glargine [Lantus Solostar U-100 Insulin] 100 unit/mL (3 mL) insulin pen 9 unit subcut QAM Rx Instructions: Starting dose, with adjustment per AM blood glucose levels per CDE/Dr. Guzman or PCP Discharge Instructions Instructions: Nausea and Vomiting, Adult ED Additional Instructions: Your lab work did not show any significant electrolyte derangement or dehydration. You have been sent home with a few doses of Zofran and additional prescription has been sent to the pharmacy Return to the emergency department if you are not tolerating anything by mouth. Discharge Data Discharge Date/Time-TO BE ENTERED AT DEPARTURE: 07/01/24 18:23 HPI General Date/Time Provider Initiated Documentation: 07/01/24 16:38. Limitations to Documentation: no limitations. Information obtained by: patient. HPI Narrative: 59-year-old gentleman with past medical history of diabetes presents for evaluation of vomiting and diarrhea. Onset of symptoms yesterday. Reports generalized crampy abdominal pain, worse right before he vomits. Reports diarrhea has been watery. Reports that he is attempted to take some Zofran and is able to keep a small amount of liquids down, but then eventually throws up. Blood sugar has been running normally. Low-grade fever, no known sick contacts. Related Data Home Medications ?Medication ?Instructions ?Recorded ?Confirmed pen needle, diabetic 32 gauge x #100 ea 12/01/23 07/01/24 (Comfort EZ Pen [place]) rosuvastatin 5 mg tablet 5 mg PO DAILY 90 days #90 tabs 12/29/23 07/01/24 multivitamin (Daily Multi-Vitamin 1 tab PO DAILY 01/23/24 07/01/24 tablet) insulin glargine 100 unit/mL (3 9 unit subcut QAM DM, with goal 02/01/24 07/01/24 mL) subcutaneous pen (Lantus A1C < 7.5 Solostar U-100 Insulin) tirzepatide 12.5 mg/0.5 mL 12.5 mg (0.5 mL) subcut QWEEK 28 03/08/24 07/01/24 subcutaneous pen injector days #2 mL cholecalciferol (vitamin D3) 1,250 1,250 mcg PO QWEEK #10 caps 04/05/24 07/01/24 mcg (50,000 unit) capsule blood sugar diagnostic (OneTouch #50 ea 05/13/24 07/01/24 Ultra Test strips) tirzepatide 15 mg/0.5 mL 15 mg (0.5 mL) subcut QWEEK 28 06/26/24 07/01/24 subcutaneous pen injector days #2 mL blood-glucose sensor (Dexcom G7 #1 ea 06/28/24 07/01/24 Sensor device) ondansetron 4 mg disintegrating 4 mg PO Q6H PRN nausea and 07/01/24 tablet vomiting #30 tabs Previous Rx's ?Medication ?Instructions ?Recorded pen needle, diabetic 32 gauge x #100 ea 12/01/23 (Comfort EZ Pen [place]) rosuvastatin 5 mg tablet 5 mg PO DAILY 90 days #90 tabs 12/29/23 tirzepatide 12.5 mg/0.5 mL 12.5 mg (0.5 mL) subcut QWEEK 28 03/08/24 subcutaneous pen injector days #2 mL cholecalciferol (vitamin D3) 1,250 1,250 mcg PO QWEEK #10 caps 04/05/24 mcg (50,000 unit) capsule blood sugar diagnostic (OneTouch #50 ea 05/13/24 Ultra Test strips) tirzepatide 15 mg/0.5 mL 15 mg (0.5 mL) subcut QWEEK 28 06/26/24 subcutaneous pen injector days #2 mL blood-glucose sensor (Dexcom G7 #1 ea 06/28/24 Sensor device) ondansetron 4 mg disintegrating 4 mg PO Q6H PRN nausea and 07/01/24 tablet vomiting #30 tabs Allergies Allergy/AdvReac Type Severity Reaction Status Date / Time No Known Allergies Allergy Verified 07/01/24 16:36 General Stated Complaint: Nausea/Vomit/Diar BILL: 3 Exam Narrative Exam Narrative: Review of Systems: All systems reviewed & are unremarkable except as noted in HPI and below Well-developed, no acute distress NCAT PERRL, normal conjunctiva Dry mucous membranes RRR Unlabored respiratory effort clear bilaterally Nondistended abdomen soft nontender Course Vital Signs Vital signs: Vital Signs Temperature 37.5 C 07/01/24 16:33 Pulse 102 H 07/01/24 16:33 Respiratory Rate 18 07/01/24 16:33 Blood Pressure 120/76 07/01/24 16:33 Pulse Oximetry 96 07/01/24 16:33 Temperature 37.5 C 07/01/24 17:18 Temperature Source Oral 07/01/24 17:18 Pulse 84 07/01/24 18:26 Pulse Rhythm Regular 07/01/24 18:26 Pulse Strength Normal 07/01/24 18:26 Respiratory Rate 18 07/01/24 17:18 Blood Pressure 120/76 07/01/24 17:18 Pulse Oximetry 96 07/01/24 17:18 Oxygen Delivery Method Room Air 07/01/24 17:18 Oxygen Flow Rate 0 07/01/24 17:18 Pain Level 4 07/01/24 17:18 Lab/Test Results Lab/Test Results: Laboratory Tests Range/Units 07/01/24 16:55 WBC (4.4-10.8) 10^3/uL 7.14 RBC (4.36-5.78) 10^6/uL 5.24 Hgb (13.5-17.5) g/dL 14.7 Hct (40.0-50.0) % 44.1 MCV (80-95) fL 84 MCH (27.0-33.0) pg 28.1 MCHC (32.0-36.0) % 33.3 RDW (11.8-14.1) % 13.5 Plt Count (130-400) 10^3/uL 281 MPV (8.0-11.0) fL 9.5 Immature Gran % % 0.3 Neutrophils % % 90.1 Lymphocytes % % 5.3 Monocytes % % 4.2 Eosinophils % % 0.0 Basophils % % 0.1 Nucleated RBC % (0.0-0.3) % 0.0 Absolute Neutrophils (1.2-6.7) 10^3/uL 6.43 Absolute Lymphocytes (1.2-3.4) 10^3/uL 0.38 L Absolute Monocytes (0.1-0.8) 10^3/uL 0.30 Absolute Eosinophils (0.0-0.7) 10^3/uL 0.00 Absolute Basophils (0.0-0.2) 10^3/uL 0.01 Sodium (136-145) mmol/L 137 Potassium (3.5-5.1) mmol/L 3.3 L Chloride (98-107) mmol/L 100 Carbon Dioxide (21.0-32.0) mmol/L 26.4 Anion Gap (3-11) mmol/L 10.6 BUN (7-18) mg/dL 18 Creatinine (0.70-1.30) mg/dL 1.0 Est GFR (CKD-EPI 2020) (mL/min/1.73m2) 87.78 Glucose (74-106) mg/dL 153 H Calcium (8.5-10.1) mg/dL 8.8 Total Bilirubin (0.2-1.0) mg/dL 0.92 AST (15-37) U/L 20 ALT (16-63) U/L 44 Alkaline Phosphatase (46-116) U/L 65 Total Protein (6.4-8.2) g/dL 7.4 Albumin (3.4-5.0) g/dL 3.7 Medical Decision Making Emergent evaluation of GI illness. In initial differential includes viral illness, electrolyte derangement, diabetic emergency, dehydration. Patient has benign abdominal exam and have a low suspicion for an acute intra-abdominal pathology. His COVID and flu testing were negative. He was resuscitated with IV fluids and antiemetics and was tolerating p.o. prior to discharge. Lab work was obtained and there is no leukocytosis or anemia. No significant electrolyte derangements. Glucose slightly elevated but no concern for DKA. Patient will be discharged with Zofran to take as needed. Strict return precautions advised. Follow-up with PCP. Quality:SDOH Health Related Social Needs: No Data to Display PFSH All Active Problems (Updated 07/01/24 @ 17:59 by Jenny Nesbitt MD) Nausea vomiting and diarrhea (Acute) Low vitamin D level (Acute) Lateral femoral cutaneous neuropathy (Acute) Bilateral foot-drop (Acute) Ataxic gait determined by examination (Acute) per PT Chronic lower back pain (Chronic) Staci type 2a hyperlipoproteinemia (Acute) Diabetes mellitus type 2, uncomplicated (Acute) Hx of low back pain (Acute) Physical deconditioning (Acute) Weight gain (Acute) BPH w urinary obs/LUTS (Acute) Medical History Encounter for screening colonoscopy Obstructive sleep apnea syndrome, severe (06/19/18) C Pap 02/21/19 [facility] F[facility] Tubular adenoma of colon (08/21/17) tubular and tubulovillous [facility] (obstructive sleep apnea) Hx of type 2 diabetes mellitus Adenomatous polyp of colon with dysplacia Surgical History H/O right wrist surgery 1973 in [place] Colonoscopy - [facility] (01/2024) Family History Father Parathyroid disease Diabetes Heart disease cabg at 65 Alcohol use disorder Mother , 69 Drug addiction Cancer breast cancer Brother Diabetes Paternal Grandmother Anxiety Depression Alcohol use disorder Social History Smoking/Tobacco Use Status: Never Second Hand Exposure: No Smoking risk assessment performed?: Yes Alcohol Intake: never Drug use: Never Substance use type: does not use Adopted: No Caregiver/Support person: No Foster care: No Household members: spouse and children Housing: house Number of Children: 8 number of grandchildren: 3 Communication Needs: None Education Level: college Do you need help understanding health information?: Never 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, undertaker Pets and animals: Yes Sexually active: Yes Do you think of yourself as: straight/heterosexual Current gender identity: male What is your relationship status?: How often do you talk on the phone with friends or family?: three or more times per week How often do you get together with friends or relatives?: three or more times per week Do you belong to any clubs or organized social groups?: no Panel score (0-1 are the most socially isolated patients): 2 What type of physical activity do you participate in: none Gracia/Pentecostalism: Baptism Seatbelt use: always Helmet use: Yes Drive intox or ride w/intox train driver: No Do you feel safe at home: Yes Do you feel safe in your relationship?: Yes
== END 2024-07-01 18:23 | disposition home or self-care (01) ==
PROVIDERS: Emergency Provider Emergency Medicine; PCP Student in an Organized Health Care Education/Training Program
DX: R11.2 Nausea with vomiting, unspecified (principal); R19.7 Diarrhea, unspecified; E11.9 Type 2 diabetes mellitus without complications; Z79.4 Long term (current) use of insulin; Z79.85 Long-term (current) use of injectable non-insulin antidiabetic drugs
CPT/HCPCS: 80053; 96365; 96375; 99284; 85025; J0131; J2405

== ENCOUNTER 2024-07-10 12:19 | Emergency (ER) | payer BC, SELFPAY ==
[2024-07-10] VITALS (38 sets, daily range): BP systolic 92–160; BP diastolic 47–89; PULSE 86–115; RESP 14–36; TEMP 37.4–37.9; O2SAT 91–95
[2024-07-10 14:02] LABS: Abs Immature Grans 0.05 10^3/uL (0.0-0.06); Absolute Basophil Count 0.04 10^3/uL (0.0-0.2); Absolute Eosinophil Count 0.01 10^3/uL (0.0-0.7); Absolute Lymphocyte Count 0.53 10^3/uL (1.2-3.4); Absolute Monocyte Count 0.61 10^3/uL (0.1-0.8); Absolute Neutrophil Count 6.03 10^3/uL (1.2-6.7); Basophils % 0.6 %; Eosinophils % 0.1 %; HCT 43.2 % (40.0-50.0); HGB 14.4 g/dL (13.5-17.5); Immature Grans % 0.7 %; Lactate 0.8 mmol/L (<or=2.0); Lymphocytes % 7.3 %; MCHC 33.3 % (32.0-36.0); MCV 84 fL (80-95); MPV 8.8 fL (8.0-11.0); Monocytes % 8.4 %; Neutrophils % 82.9 %; Platelet Count 296 10^3/uL (130-400); RBC 5.15 10^6/uL (4.36-5.78); RDW 13.6 % (11.8-14.1); RDW-SD 41.9 fL; WBC 7.27 10^3/uL (4.4-10.8)
[2024-07-10] MEDS: Ondansetron 4 MG/2 ML VIAL IVP (14:07)
[2024-07-10] MEDS: Acetaminophen 500 MG TAB 1000 MG PO (14:07)
[2024-07-10 14:23] LABS: ALT 71 U/L (16-63); AST 38 U/L (15-37); Albumin 3.6 g/dL (3.4-5.0); Alkaline Phosphatase 85 U/L (46-116); Anion Gap 7.9 mmol/L (3-11); BUN 11 mg/dL (7-18); Bilirubin, Total 0.71 mg/dL (0.2-1.0); CO2 28.1 mmol/L (21.0-32.0); Calcium 9.3 mg/dL (8.5-10.1); Chloride 97 mmol/L (98-107); Estimated GFR 87.78 (mL/min/1.73m2); Glucose 106 mg/dL (74-106); Potassium 3.9 mmol/L (3.5-5.1); Sodium 133 mmol/L (136-145); Total Protein 7.4 g/dL (6.4-8.2)
--- NOTE | 2024-07-10 14:23 | DI.RAD_ITS ---
Exam(s) XR PORTABLE CHEST AP EXAM: XR PORTABLE CHEST AP CLINICAL HISTORY: cough TECHNIQUE: 2D digital imaging was performed. COMPARISON: CR XR CHEST 2V PA LATERAL from 05/10/2018 FINDINGS: Exam is limited by suboptimal pulmonary inflation. Monitoring leads overlie the chest. LUNGS: Mild linear atelectasis at the lung bases. Clear. No pleural abnormality seen. HEART: Normal size. AORTA: Normal diameter. BONES: Unremarkable for age. Soft tissues: Unremarkable. IMPRESSION: Limited exam. No acute findings. DATA REPOSITORY: RADIATION DOSE DELIVERED:
[2024-07-10 14:32] LABS: COVID-19 PCR Negative (Negative); Influenza A PCR Positive (Negative); Influenza B PCR Negative (Negative); RSV PCR Negative (Negative)
[2024-07-10 14:33] LABS: Source Nasopharynx
--- NOTE | 2024-07-10 14:53 | ED.GENADUL_ITS ---
Discharge Plan Disposition Patient Disposition: Home Condition: Stable Discharge Details Clinical Impression: Influenza A, Fever, Cough Primary Care Provider: Abel Grande ED Provider: Jenny Nesbitt Home Meds and New Rx's Prescriptions: New oseltamivir [Tamiflu] 75 mg capsule 75 mg PO BID 5 Days Qty: 10 0RF promethazine 6.25 mg/5 mL syrup 12.5 mg PO Q6H PRN (Reason: cough) Qty: 120 0RF benzonatate 100 mg capsule 100 mg PO TID PRN (Reason: cough) Qty: 30 0RF ondansetron 4 mg tablet,disintegrating 4 mg PO Q6H PRN (Reason: nausea and vomiting) Qty: 30 0RF No Action cholecalciferol (vitamin D3) 1,250 mcg (50,000 unit) capsule 1,250 mcg PO QWEEK Qty: 10 1RF (DME) pen needle, diabetic [Comfort EZ Pen [place]] 32 gauge x 5/32 needle See Rx Instructions .Route Qty: 100 12RF Rx Instructions: Use daily with insulin injection (DME) OneTouch Ultra Test Strip See Rx Instructions .Route Qty: 50 12RF Rx Instructions: Use to confirm BG readings from Eloisa multivitamin [Daily Multi-Vitamin] Tablet 1 tab PO DAILY rosuvastatin 5 mg tablet 5 mg PO DAILY MDD 5 mg 90 Days Qty: 90 4RF Patient Comments: has not started yet Rx Instructions: Take one 5 mg tablet by mouth once daily tirzepatide 12.5 mg/0.5 mL pen injector 12.5 mg subcut QWEEK MDD 12.5 mg 28 Days Qty: 2 12RF Rx Instructions: Inject 12.5 mg subcutaneously once weekly as directed tirzepatide 15 mg/0.5 mL pen injector 15 mg subcut QWEEK 28 Days Qty: 2 12RF Rx Instructions: Inject 15 mg subcutaneously once weekly as directed. (DME) Rundown App G7 Sensor Device See Rx Instructions .Route Qty: 1 12RF Rx Instructions: Apply to rear tricep as directed insulin glargine [Lantus Solostar U-100 Insulin] 100 unit/mL (3 mL) insulin pen See Rx Instructions .ROUTE .COMPLEX Qty: 15 0RF Dose Instruction: INJECT 8 UNITS SUBCUTANEOUSLY EVERY EVENING FOR DIABETES MELLITUS WITH ADJUSTMENT PER IN THE MORNING BLOOD GLUCOSE LEVELS PER PROVIDER Rx Instructions: INJECT 8 UNITS SUBCUTANEOUSLY EVERY EVENING FOR DIABETES MELLITUS WITH ADJUSTMENT PER IN THE MORNING BLOOD GLUCOSE LEVELS PER PROVIDER ondansetron 4 mg tablet,disintegrating 4 mg PO Q6H PRN (Reason: nausea and vomiting) Qty: 30 0RF Discharge Instructions Instructions: Flu, Adult ED Additional Instructions: Your flu test is positive today and is likely the cause of the return of your sick symptoms You have been started on Tamiflu, but there is no indication for antibiotics at this time. Your chest x-ray does not reveal a pneumonia. You have had prescriptions sent to the pharmacy to help with your symptoms including nausea medicine (Zofran), cough medicine (Tessalon Perles, Phenergan syrup) and the remaining doses of your Tamiflu Please continue to take Motrin and Tylenol as needed for fever and bodyaches. Stay hydrated. Return with any concerns for worsening symptoms HPI General Date/Time Provider Initiated Documentation: 07/10/24 12:37 . Limitations to Documentation: physical limitation . Information obtained by: patient . HPI Narrative: 59-year-old gentleman with past medical history of diabetes, BPH presents for evaluation of cough. He was evaluated in the emergency department earlier this month for evaluation of vomiting. At that time viral testing was negative. He reports improvement in his symptoms was eating and drinking normally. Was able to return to work. 2 days ago he had return of fatigue, body aches, productive cough and some vomiting. Having subjective fever and chills. No diarrhea. Related Data Home Medications ?Medication ?Instructions ?Recorded ?Confirmed pen needle, diabetic 32 gauge x #100 ea 12/01/23 07/10/24 (Comfort EZ Pen [place]) rosuvastatin 5 mg tablet 5 mg PO DAILY 90 days #90 tabs 12/29/23 07/10/24 multivitamin (Daily Multi-Vitamin 1 tab PO DAILY 01/23/24 07/10/24 tablet) tirzepatide 12.5 mg/0.5 mL 12.5 mg (0.5 mL) subcut QWEEK 28 03/08/24 07/10/24 subcutaneous pen injector days #2 mL cholecalciferol (vitamin D3) 1,250 1,250 mcg PO QWEEK #10 caps 04/05/24 07/10/24 mcg (50,000 unit) capsule blood sugar diagnostic (OneTouch #50 ea 05/13/24 07/10/24 Ultra Test strips) tirzepatide 15 mg/0.5 mL 15 mg (0.5 mL) subcut QWEEK 06/26/24 07/10/24 subcutaneous pen injector days #2 mL blood-glucose sensor (Dexcom G7 #1 ea 06/28/24 07/10/24 Sensor device) ondansetron 4 mg disintegrating 4 mg PO Q6H PRN nausea and 07/01/24 07/10/24 tablet vomiting #30 tabs insulin glargine 100 unit/mL (3 See Rx Instructions .Route 07/05/24 07/10/24 mL) subcutaneous pen (Lantus .COMPLEX #15 mL Solostar U-100 Insulin) benzonatate 100 mg capsule 100 mg PO TID PRN cough #30 caps 07/10/24 ondansetron 4 mg disintegrating 4 mg PO Q6H PRN nausea and 07/10/24 tablet vomiting #30 tabs oseltamivir 75 mg capsule (Tamiflu) 75 mg PO BID 5 days #10 caps 07/10/24 promethazine 6.25 mg/5 mL oral 12.5 mg (10 mL) PO Q6H PRN cough 07/10/24 syrup #120 mL Previous Rx's ?Medication ?Instructions ?Recorded pen needle, diabetic 32 gauge x #100 ea 12/01/23 (Comfort EZ Pen [place]) rosuvastatin 5 mg tablet 5 mg PO DAILY 90 days #90 tabs 12/29/23 tirzepatide 12.5 mg/0.5 mL 12.5 mg (0.5 mL) subcut QWEEK 03/08/24 subcutaneous pen injector days #2 mL cholecalciferol (vitamin D3) 1,250 1,250 mcg PO QWEEK #10 caps 04/05/24 mcg (50,000 unit) capsule blood sugar diagnostic (OneTouch #50 ea 05/13/24 Ultra Test strips) tirzepatide 15 mg/0.5 mL 15 mg (0.5 mL) subcut QWEEK 06/26/24 subcutaneous pen injector days #2 mL blood-glucose sensor (Dexcom G7 #1 ea 06/28/24 Sensor device) ondansetron 4 mg disintegrating 4 mg PO Q6H PRN nausea and 07/01/24 tablet vomiting #30 tabs insulin glargine 100 unit/mL (3 See Rx Instructions .Route 07/05/24 mL) subcutaneous pen (Lantus .COMPLEX #15 mL Solostar U-100 Insulin) benzonatate 100 mg capsule 100 mg PO TID PRN cough #30 caps 07/10/24 ondansetron 4 mg disintegrating 4 mg PO Q6H PRN nausea and 07/10/24 tablet vomiting #30 tabs oseltamivir 75 mg capsule (Tamiflu) 75 mg PO BID 5 days #10 caps 07/10/24 promethazine 6.25 mg/5 mL oral 12.5 mg (10 mL) PO Q6H PRN cough 07/10/24 syrup #120 mL Allergies Allergy/AdvReac Type Severity Reaction Status Date / Time No Known Allergies Allergy Verified 07/10/24 12:29 General Stated Complaint: Abd Prob BILL: 3 Exam Narrative Exam Narrative: Review of Systems: All systems reviewed & are unremarkable except as noted in HPI and below Well-developed febrile NCAT Mild tachycardia, no murmur Unlabored respiratory effort, no increased work of breathing or hypoxia coarse breath sounds, no focality, no wheezing Nondistended abdomen soft nontender Extremities w/o edema No rashes or lesions. no focal neurologic deficits Appropriate mood and affect Course Vital Signs Vital signs: Vital Signs Temperature 37.9 C H 07/10/24 12:25 Pulse 110 H 07/10/24 12:25 Respiratory Rate 20 07/10/24 12:25 Blood Pressure 115/75 07/10/24 12:25 Pulse Oximetry 94 07/10/24 12:25 Temperature 37.9 C H 07/10/24 12:30 Pulse 101 H 07/10/24 14:01 Pulse 105 H 07/10/24 14:01 Respiratory Rate 15 07/10/24 14:01 Blood Pressure 160/89 H 07/10/24 14:01 Blood Pressure Mean 115 07/10/24 14:01 Blood Pressure Position Sitting 07/10/24 12:30 Pulse Oximetry 94 07/10/24 14:01 Oxygen Delivery Method Room Air 07/10/24 12:30 Oxygen Flow Rate 0 07/10/24 12:30 Pain Level 3 07/10/24 14:07 Lab/Test Results Lab/Test Results: 07/10/24 14:17 Blood Blood Culture - Pending 07/10/24 13:55 Blood Blood Culture - Pending Laboratory Tests Range/Units 07/10/24 07/10/24 13:40 13:55 WBC (4.4-10.8) 10^3/uL 7.27 RBC (4.36-5.78) 10^6/uL 5.15 Hgb (13.5-17.5) g/dL 14.4 Hct (40.0-50.0) % 43.2 MCV (80-95) fL 84 MCH (27.0-33.0) pg 28.0 MCHC (32.0-36.0) % 33.3 RDW (11.8-14.1) % 13.6 Plt Count (130-400) 10^3/uL 296 MPV (8.0-11.0) fL 8.8 Immature Gran % % 0.7 Neutrophils % % 82.9 Lymphocytes % % 7.3 Monocytes % % 8.4 Eosinophils % % 0.1 Basophils % % 0.6 Nucleated RBC % (0.0-0.3) % 0.0 Absolute Neutrophils (1.2-6.7) 10^3/uL 6.03 Absolute Lymphocytes (1.2-3.4) 10^3/uL 0.53 L Absolute Monocytes (0.1-0.8) 10^3/uL 0.61 Absolute Eosinophils (0.0-0.7) 10^3/uL 0.01 Absolute Basophils (0.0-0.2) 10^3/uL 0.04 VBG Lactate (<or=2.0) mmol/L 0.8 Sodium (136-145) mmol/L 133 L Potassium (3.5-5.1) mmol/L 3.9 Chloride (98-107) mmol/L 97 L Carbon Dioxide (21.0-32.0) mmol/L 28.1 Anion Gap (3-11) mmol/L 7.9 BUN (7-18) mg/dL 11 Creatinine (0.70-1.30) mg/dL 1.0 Est GFR (CKD-EPI 2020) (mL/min/1.73m2) 87.78 Glucose (74-106) mg/dL 106 Calcium (8.5-10.1) mg/dL 9.3 Total Bilirubin (0.2-1.0) mg/dL 0.71 AST (15-37) U/L 38 H ALT (16-63) U/L 71 H Alkaline Phosphatase (46-116) U/L 85 Total Protein (6.4-8.2) g/dL 7.4 Albumin (3.4-5.0) g/dL 3.6 COVID-19 Source Nasopharynx SARS-CoV-2 (PCR) (Negative) Negative Influenza Type A (PCR) (Negative) Positive A Influenza Type B (PCR) (Negative) Negative RSV (PCR) (Negative) Negative Medical Decision Making Emergent evaluation of cough and fever. Initial differential includes pneumonia, viral illness. Given poor oral intake would also consider dehydration, electrolyte derangement. Will treat fever. Check lab work and chest x-ray. Lab work reviewed. Patient's flu test is positive today. White blood cell count is 7, no significant shift. No significant electrolyte derangement. I reviewed his symptoms, the patient is within the window for Tamiflu. His chest x-ray report was reviewed and there is not a focal consolidation. Although he did have some abnormality in his breath sounds, he is not hypoxic or having increased work of breathing that would make me think that he does have pneumonia that needs to be treated at this time. Will p.o. challenge, start Tamiflu and reassess. Tolerating p.o. and heart rates improved with IV fluids. Overall patient is feeling much better. At this time will discharge home with prescriptions for cough, nausea and Tamiflu. Strict return precautions advised to the patient. Quality:SDOH Health Related Social Needs: No Data to Display PFSH All Active Problems (Updated 07/10/24 @ 15:29 by Jenny Nesbitt MD) Cough (Acute) Fever (Acute) Influenza A (Acute) Nausea vomiting and diarrhea (Acute) Low vitamin D level (Acute) Lateral femoral cutaneous neuropathy (Acute) Bilateral foot-drop (Acute) Ataxic gait determined by examination (Acute) per PT Chronic lower back pain (Chronic) Staci type 2a hyperlipoproteinemia (Acute) Diabetes mellitus type 2, uncomplicated (Acute) Hx of low back pain (Acute) Physical deconditioning (Acute) Weight gain (Acute) BPH w urinary obs/LUTS (Acute) Medical History Encounter for screening colonoscopy Obstructive sleep apnea syndrome, severe (06/19/18) C Pap 02/21/19 [facility] F[facility]U [facility] Tubular adenoma of colon (08/21/17) tubular and tubulovillous [facility] (obstructive sleep apnea) Hx of type 2 diabetes mellitus Adenomatous polyp of colon with dysplacia Surgical History H/O right wrist surgery 1973 in [place] Colonoscopy - [facility] (01/2024) Family History Father Parathyroid disease Diabetes Heart disease cabg at 65 Alcohol use disorder Mother , 69 Drug addiction Cancer breast cancer Brother Diabetes Paternal Grandmother Anxiety Depression Alcohol use disorder Social History Smoking/Tobacco Use Status: Never Second Hand Exposure: No Smoking risk assessment performed?: Yes Alcohol Intake: never Drug use: Never Substance use type: does not use Adopted: No Caregiver/Support person: No Foster care: No Household members: spouse and children Housing: house Number of Children: 8 number of grandchildren: 3 Communication Needs: None Education Level: college Do you need help understanding health information?: Never 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, undertaker Pets and animals: Yes Sexually active: Yes Do you think of yourself as: straight/heterosexual Current gender identity: male What is your relationship status?: How often do you talk on the phone with friends or family?: three or more times per week How often do you get together with friends or relatives?: three or more times per week Do you belong to any clubs or organized social groups?: no Panel score (0-1 are the most socially isolated patients): 2 What type of physical activity do you participate in: none Gracia/Baptist: Lutheran Seatbelt use: always Helmet use: Yes Drive intox or ride w/intox automobile drivers: No Do you feel safe at home: Yes Do you feel safe in your relationship?: Yes
[2024-07-10] MEDS: Lactated Ringers 1,000 ML 1000 ML IV (14:57)
[2024-07-10] MEDS: Oseltamivir 75 MG CAP PO (15:08)
== END 2024-07-10 16:53 | disposition home or self-care (01) ==
PROVIDERS: Emergency Provider Emergency Medicine; PCP Family Medicine
DX: J09.X2 Influenza due to identified novel influenza A virus with other respiratory manifestations (principal); R11.2 Nausea with vomiting, unspecified; R05.1 Acute cough; R50.9 Fever, unspecified
CPT/HCPCS: 36415; 80053; 87040; 87637; 96361; 96374; 99284; 71045; 83605; 85025; J2405